=== PATIENT | female | born 1990 | race Caucasian/White ===

== ENCOUNTER 2016-06-20 11:04 | Outpatient (CLI) | payer BC | END 2016-06-20 11:05 | disposition home or self-care (01) | DX: N39.0 Urinary tract infection, site not specified (principal) ==

== ENCOUNTER 2017-11-16 10:34 | Emergency (ER) | payer BC, MEDICAID ==
--- NOTE | 2017-11-16 12:11 | ED Physician Documentation ---
PD HPI ANIMAL BITE - Stated complaint Stated Complaint: DOG BITE-FACE - Chief complaint Chief Complaint: Laceration - History obtained from History obtained from: Patient - History of Present Illness Location of injury(ies): Face (right side) Details of the event: Dog, Well appearing, Immunization unknown (she was bitten by a stray dog yesterday, with small lac and several linear abrasions on right side of face.), Animal control notified Timing - onset: Yesterday Timing - details: Abrupt onset Worsened by: Palpating Associated symptoms: No: Weakness, Numbness Similar symptoms before: Has not had sx before Recently seen: Not recently seen Review of Systems Constitutional: denies: Fever, Chills, Myalgias Eyes: denies: Loss of vision, Decreased vision Nose: denies: Rhinorrhea / runny nose, Congestion Throat: denies: Sore throat Cardiac: denies: Chest pain / pressure, Palpitations Respiratory: denies: Dyspnea, Cough, Wheezing GI: denies: Nausea, Vomiting, Diarrhea PD PAST MEDICAL HISTORY - Past Medical History Cardiovascular: None Respiratory: None Neuro: None Endocrine/Autoimmune: None - Present Medications Home Medications: Ambulatory Orders Medication Instructions Recorded Confirmed Amox/Clav 875/125 [Augmentin] 1 each PO BID #10 tablet 11/16/17 Mupirocin 1 applic TP TID #15 oint...g. 11/16/17 - Allergies Allergies/Adverse Reactions: Allergies Allergy/AdvReac Type Severity Reaction Status Date / Time No Known Drug Allergies Allergy Verified 11/16/17 10:53 PD ED PE NORMAL - Vitals Vital signs reviewed: Yes - General General: Alert and oriented X 3, No acute distress, Well developed/nourished - HEENT HEENT: PERRL, EOMI, Other (rigth side of face with several linear vertical abrasions with one partial thickness. At the apex of these is a 1 cm puncture lac with edges pretty well closed. No signs of infection. No FB noted. ) - Neck Neck: Supple, no meningeal sign, No adenopathy - Cardiac Cardiac: RRR, No murmur - Respiratory Respiratory: Clear bilaterally - Neuro Neuro: Alert and oriented X 3, canine service instructor trainer 2-12 intact, No motor deficit, No sensory deficit, Normal speech Results - Vitals Vitals: Oxygen O2 Source Room air PD MEDICAL DECISION MAKING - ED course Complexity details: considered differential (abrasions and partial thickness linear lac, with one curve lac that is full thickness but small and not open. No sutures needed. Might have some scarring from them though. ), d/w patient Departure - Departure Disposition: 01 Home, Self Care Clinical Impression: Dog bite of face Qualifiers: Encounter type: initial encounter Qualified Code(s): S01.85XA - Open bite of other part of head, initial encounter Condition: Stable Record reviewed to determine appropriate education?: Yes Instructions: ED Bite Dog Prescriptions: Amox/Clav 875/125 [Augmentin] 1 each PO BID #10 tablet Mupirocin 1 applic TP TID #15 oint...g. Comments: The best care for reducing scarring will be to prevent infection and keep the wound slightly moist. Cleanse it to 3 times a day with soap and water and apply mupirocin antibacterial ointment. Also take Augmentin oral antibiotic twice daily for 3-5 days. This will reduce the chances of infection. Continue the ointment on there until it is fully healed up. I think this will heal up with minimal scarring. Tylenol or ibuprofen if needed for pains. Discharge Date/Time: 11/16/17 12:48
[2017-11-16] MEDS ORDERED: TETANUS/DIPHTHERIA/PERTUSSIS 0.5 ML SYRINGE IM ONE (12:20)
[2017-11-16] MEDS ORDERED: AMOX/CLAV 875 MG/125 MG TABLET PO STA (12:20)
[2017-11-16] MEDS ORDERED: MUPIROCIN 2% OINT 1 GM TOP STA (12:20)
[2017-11-16 12:43] VITALS: BP 116/84
== END 2017-11-16 12:48 | disposition home or self-care (01) ==
LOC: ED 10:34
DX: S01.451A Open bite of right cheek and temporomandibular area, initial encounter (principal); W54.0XXA Bitten by dog, initial encounter; Z23 Encounter for immunization
CPT/HCPCS: 90471; 90715; 99283; A9270

== ENCOUNTER 2018-03-15 12:07 | Outpatient (CLI) | payer MEDICAID ==
--- NOTE | 2018-03-15 15:02 | Ultrasound Report ---
Reason: ENCTR FOR TEST, RESULT POSITIVE Procedure Date: 03/15/2018 Accession Number: [id number] / [id number] Procedure: US - OB First Trimester CPT Code: FULL RESULT: EXAM: FIRST TRIMESTER OBSTETRIC ULTRASOUND (Less than 11 weeks) EXAM DATE: 03/15/2018 01:52 PM. CLINICAL HISTORY: Positive test. LMP: 01/14/2018. COMPARISONS: None. TECHNIQUE: Transabdominal and transvaginal ultrasound examination with static image documentation. CLINICAL DATES: EGA 8 weeks 3 days with SHERLY 10/22/2018 based on 01/14/2018. ASSESSMENT: Gestational Sac: Single intrauterine. Mean gestational sac diameter: 28 mm = 7 weeks 6 days. Embryo: CRL (crown-rump length) 17 mm = 7 weeks 6 days. Cardiac activity: 170 beats per minute. Yolk sac: 4 mm. Amniotic fluid: Not accurately assessed at this gestational age. Early placenta: Not visible at this gestational age. Other: No perigestational fluid collection demonstrated. MATERNAL STRUCTURES: Uterus: Anteverted. Unremarkable. Cervix: Closed. Right Ovary/Adnexa: The ovary measures 3.5 x 2.1 x 2.2 cm, volume 8.4 cc. Unremarkable. Left Ovary/Adnexa: The ovary measures 3.4 x 1.5 x 2.3 cm, volume 6.1 cc. Unremarkable. Free Fluid: None. Other: None. IMPRESSION: 1. Single viable intrauterine at EGA weeks/days with SHERLY 7 weeks 6 days based on crown-rump length, which is concordant with clinical dates. 2. Assigned dating is SHERLY 10/22/2018 based on LMP. ARGENIS
== END 2018-03-15 12:08 | disposition home or self-care (01) ==
LOC: DI 12:07
PROVIDERS: ATTEND Registered Nurse
DX: Z32.01 Encounter for pregnancy test, result positive (principal)
CPT/HCPCS: 76801

== ENCOUNTER 2018-03-25 08:00 | Outpatient (CLI) | payer MEDICAID ==
[2018-03-25 16:00] LABS: MUDS CUTOFF CONCENTRATIONS CUTOFF CONC BELOW:
[2018-03-25 16:35] LABS: AMPHETAMINE SCREEN,URINE NEGATIVE (NEGATIVE); BENZODIAZEPINES SCREEN, URINE NEGATIVE (NEGATIVE); COCAINE SCREEN URINE NEGATIVE (NEGATIVE); METHADONE SCREEN, URINE NEGATIVE (NEGATIVE); METHAMPHETAMINES SCREEN, URINE NEGATIVE (NEGATIVE); OPIATE SCREEN, URINE NEGATIVE (NEGATIVE); OXYCODONE SCREEN, URINE NEGATIVE (NEGATIVE); PROPOXYPHENE SCREEN, URINE NEGATIVE (NEGATIVE); TRICYCLIC ANTIDEPRESSANT,URINE NEGATIVE (NEGATIVE)
== END 2018-03-25 08:01 ==
LOC: LAB.R 08:00
PROVIDERS: ATTEND Registered Nurse
DX: Z36.9 Encounter for antenatal screening, unspecified (principal)
CPT/HCPCS: 80306

== ENCOUNTER 2018-04-14 10:59 | Outpatient (CLI) | payer MEDICAID ==
[2018-04-14 11:39] LABS: BASOPHILS % (AUTO) 0.3 %; EOSINOPHILS # (AUTO) 0.1 10^3/uL (0.0-0.7); EOSINOPHILS % (AUTO) 0.8 %; HGB - HEMOGLOBIN 12.3 g/dL (12.0-16.0); LYMPHOCYTES # (AUTO) 1.8 10^3/uL (1.5-3.5); LYMPHOCYTES % (AUTO) 24.3 %; MEAN CORPUSCULAR HEMOGLOBIN 30.9 pg (27.0-31.0); MEAN CORPUSCULAR HGB CONC 34.7 g/dL (32.0-36.0); MEAN PLATELET VOLUME 8.8 fL (7.9-10.8); MONOCYTES # (AUTO) 0.3 10^3/uL (0.0-1.0); MONOCYTES % (AUTO) 3.8 %; NEUTROPHILS # (AUTO) 5.1 10^3/uL (1.5-6.6); NEUTROPHILS % (AUTO) 70.8 %; PLT - PLATELET COUNT 189 10^3/uL (130-450); RED BLOOD COUNT 3.99 10^6/uL (4.20-5.40); RED CELL DISTRIBUTION WIDTH 12.4 % (12.0-15.0); WHITE BLOOD COUNT 7.3 x10^3/uL (4.8-10.8)
[2018-04-14 12:21] LABS: BILIRUBIN,URINE NEGATIVE (NEGATIVE); CLARITY,URINE CLOUDY (CLEAR); KETONES,URINE (UA) NEGATIVE (NEGATIVE); LEUKOCYTE ESTERASE, URINE NEGATIVE (NEGATIVE); NITRITE,URINE NEGATIVE (NEGATIVE); OCCULT BLOOD,URINE NEGATIVE (NEGATIVE); PROTEIN,URINE NEGATIVE (NEGATIVE); UROBILINOGEN,URINE 0.2 (NORMAL) E.U./dL (NORMAL)
[2018-04-14 12:22] LABS: BACTERIA,URINE Few /HPF (None Seen); GLUCOSE, URINE (UA) NEGATIVE (NEGATIVE); RBC,URINE 0-5 /HPF (0-5); SQUAMOUS EPITHELIAL CELL,UR FEW Squamous (<= Few)
[2018-04-15 12:26] LABS: HIV AG/AB 4TH GEN NON-REACTIVE (NON-REACTIVE)
[2018-04-15 14:41] LABS: HEPATITIS B SURFACE ANTIGEN NON-REACTIVE (NON-REACTIVE)
[2018-04-15 14:42] LABS: HEPATITIS C ANTIBODY NON-REACTIVE (NON-REACTIVE)
== END 2018-04-14 11:00 | disposition home or self-care (01) ==
LOC: LAB 10:59
PROVIDERS: ATTEND Registered Nurse
DX: Z36.9 Encounter for antenatal screening, unspecified (principal)
CPT/HCPCS: 36415; 81001; 81599; 85025; 86592; 86762; 86803; 86850; 86900; 86901; 87340; 87389

== ENCOUNTER 2018-05-20 08:00 | Outpatient (CLI) | payer MEDICAID | END 2018-05-20 23:59 | disposition home or self-care (01) | LOC: LAB.R 08:00 | PROVIDERS: ATTEND Registered Nurse | DX: R30.0 Dysuria (principal) | CPT/HCPCS: 81001; 87086 ==

== ENCOUNTER 2018-06-11 12:24 | Outpatient (CLI) | payer MEDICAID ==
--- NOTE | 2018-06-15 10:11 | Ultrasound Report ---
Reason: ENCTR FOR SCREENING Procedure Date: 06/11/2018 Accession Number: [id number] / [id number] Procedure: US - OB Detailed Eval CPT Code: FULL RESULT: EXAM: COMPLETE OBSTETRICAL ULTRASOUND EXAM DATE: 06/11/2018 02:16 PM. CLINICAL HISTORY: anatomic survey. COMPARISON: None. TECHNIQUE: Real-time sonographic evaluation of the fetus performed by the yoga instructor. Multiple medical device sales representative static images were saved for review. DATING: Established EGA 21 weeks 1 day with SHERLY 10/21/2018 based on obstetric provider information. EGA 20 weeks 5 days with SHERLY 10/24/2018 based on the current ultrasound. GENERAL EVALUATION Isaacs . Cardiac activity: 146 bpm. movement: Visualized. Presentation: Breech Placenta: Posterior position. No evidence for previa. Umbilical cord: 3 vessel cord. Central placental cord origin. Amniotic fluid: Subjectively normal. MVP 3.9 cm. BIOMETRY Bi-Parietal Diameter (BPD): 4.7 cm, 20 weeks 1 day Head Circumference (HC): 18.2 cm, 20 weeks 4 days Abdominal Circumference (AC): 15.8 cm, 20 weeks 6 days Femur Length (FL): 3.5 cm, 21 weeks 0 days Estimated Weight: 384 g, 32nd percentile for 21 weeks 1 day. ANATOMY The intracranial structures, profile, face/nose/lips, spine, 4 chamber heart and outflow tracts, stomach, abdominal wall and cord insertion, diaphragm, kidneys, bladder, and extremities were visualized and demonstrate no abnormality. MATERNAL STRUCTURES Uterus: Unremarkable. Cervix: Long and closed. Transabdominal length 3.8 cm. Right ovary/adnexa: Unremarkable. Left ovary/adnexa: Unremarkable. Free fluid: None. IMPRESSION: 1. Isaacs live intrauterine with gestational age 21 weeks 1 day based on obstetric provider information. 2. Estimated weight is within expected limits for assigned dating. 3. Normal anatomic survey. No anatomic abnormalities are detected at this time. RADIA
== END 2018-06-11 12:25 | disposition home or self-care (01) ==
LOC: DI 12:24
PROVIDERS: ATTEND Nurse Practitioner Obstetrics & Gynecology
DX: Z36.9 Encounter for antenatal screening, unspecified (principal); Z3A.21 21 weeks gestation of pregnancy
CPT/HCPCS: 76811

== ENCOUNTER 2018-07-29 14:07 | Outpatient (CLI) | payer MEDICAID ==
[2018-07-29 15:26] LABS: HGB - HEMOGLOBIN 12.9 g/dL (12.0-16.0); MEAN CORPUSCULAR HGB CONC 33.6 g/dL (32.0-36.0); MEAN CORPUSCULAR VOLUME 92.4 fL (81.0-99.0); MEAN PLATELET VOLUME 7.9 fL (7.9-10.8); RED BLOOD COUNT 4.14 10^6/uL (4.20-5.40); RED CELL DISTRIBUTION WIDTH 13.1 % (12.0-15.0)
== END 2018-07-29 14:08 | disposition home or self-care (01) ==
LOC: LAB 14:07
PROVIDERS: ATTEND Nurse Practitioner Obstetrics & Gynecology
DX: Z36.89 Encounter for other specified antenatal screening (principal)
CPT/HCPCS: 36415; 82950; 85027; 86850

== ENCOUNTER 2018-09-25 08:00 | Outpatient (CLI) | payer MEDICAID | END 2018-09-25 23:59 | disposition home or self-care (01) | LOC: LAB.R 08:00 | PROVIDERS: ATTEND Registered Nurse | DX: Z34.90 Encounter for supervision of normal pregnancy, unspecified, unspecified trimester (principal) | CPT/HCPCS: 87491; 87591; 87797 ==

== ENCOUNTER 2018-09-25 10:40 | Outpatient (CLI) | payer MEDICAID ==
[2018-09-26 11:11] LABS: HEPATITIS C ANTIBODY NON-REACTIVE (NON-REACTIVE)
[2018-09-28 14:53] LABS: HIV AG/AB 4TH GEN NON-REACTIVE (NON-REACTIVE)
== END 2018-09-25 10:41 | disposition home or self-care (01) ==
LOC: LAB 10:40
PROVIDERS: ATTEND Registered Nurse
DX: Z34.90 Encounter for supervision of normal pregnancy, unspecified, unspecified trimester (principal)
CPT/HCPCS: 36415; 81599; 86592; 86803; 87389; 87491; 87591; 87797

== ENCOUNTER 2018-10-20 07:36 | Inpatient (IN) | payer MEDICAID ==
--- NOTE | 2018-10-20 07:45 | HISTORY & PHYSICAL EXAMINATION ---
Admit History - Visit Reason Visit Reason: Other - : 1 Parity: 0 Premature: 0 Ectopic: 0 : 0 Care: positive: [facility] Risk/History: positive: None Complications This : positive: None Smoking Status: Former smoker - Mother's Labs Mother's Blood Type: positive: A Mother's RH: positive: Positive GBS: positive: Group B Step Negative Rubella Status: positive: Immune Meds/Allgy - Home Medications Home Medications: Ambulatory Orders Medication Instructions Recorded Confirmed Amox/Clav 875/125 [Augmentin] 1 each PO BID #10 tablet 11/16/17 Mupirocin 1 applic TP TID #15 oint...g. 11/16/17 - Allergies Allergies/Adverse Reactions: Allergies Allergy/AdvReac Type Severity Reaction Status Date / Time No Known Drug Allergies Allergy Verified 11/16/17 10:53 Review of Systems - Constitutional Constitutional: denies: Fatigue, Fever, Chills - Eyes Eyes: denies: Blurred vision, Spots in vision, Dipolpia - Cardiovascular Cariovascular: denies: Irregular heart rate, Chest pain, Edema - Respiratory Respiratory: denies: Cough - Gastrointestinal Gastrointestinal: denies: Abdominal pain, Constipation, Diarrhea, Nausea, Vomiting - Integumentary Integumentary: denies: Rash, Pruritis - Neurological Neurological: denies: Headache - Psychiatric Psychiatric: denies: Depression, Anxiety Plan for Labor - Plan For Labor I expect patient to be DC'd or transferred within 96 hours.: Yes Plan for Labor: HPI: This 28yo @ 39.5wks gestation by L= 13wk U/S presents today for elective IOL. She was seen in the office 10/16/2018 and was 1-2/50/-3, posterior, vertex. She reports some lower abdominal cramping and pelvic pressure since that visit but nothing overly uncomfortable or consistent. SVE deferred. She denies VB or Lof and reports +FM. She has been a patient of [facility] for the duration of her which has remained uncomplicated. LMP: 10/21/2018 Initial ultrasound in first trimester agrees Serial exams: agree PMHx: None Medications: PNV Immunizations: Tdap 08/14/2018 Surgical Hx: None Social Hx: Former smoker - quit 04/2018. No ETOH or IVDA. Partner Jayy. Family Hx: Anemia - mother, sister; HTN - father, mother; hypothyroidism - mother Physical Exam: Normocephalic, atraumatic Heart RRR w/o M/G/R Lungs CTAB Abdomen gravid, soft, nontender FHR baseline 125, moderate variability, + accels, no decels SVE deferred Bilateral LE's no edema Assessment: 28yo @ 39.5wks gestation Pre-induction cervical ripening with misoprostol GBS negative FHT Category I Plan: Place in observation status until active labor or SROM Pre-induction cervical ripening with 50mcg misoprostol BC q 4 hours Continuous monitoring Anticipate spontaneous vaginal delivery Reviewed plan of care with patient, partner, and Labor RN who are all in agreement with the above plan and deny further questions or concerns at this time.
[2018-10-20] MEDS ORDERED: SODIUM CHLORIDE FLUSH 0.9% 10 ML SYRINGE IVP PRN (08:03)
[2018-10-20] MEDS: SODIUM CHLORIDE FLUSH 0.9% 10 ML SYRINGE IVP SCH (08:26)
[2018-10-20 08:29] LABS: BASOPHILS % (AUTO) 0.3 %; EOSINOPHILS % (AUTO) 0.3 %; HGB - HEMOGLOBIN 11.2 g/dL (12.0-16.0); LYMPHOCYTES % (AUTO) 20.5 %; MEAN CORPUSCULAR HEMOGLOBIN 28.7 pg (27.0-31.0); MEAN CORPUSCULAR HGB CONC 32.9 g/dL (32.0-36.0); MEAN CORPUSCULAR VOLUME 87.3 fL (81.0-99.0); MEAN PLATELET VOLUME 8.8 fL (7.9-10.8); MONOCYTES # (AUTO) 0.5 10^3/uL (0.0-1.0); MONOCYTES % (AUTO) 4.8 %; NEUTROPHILS # (AUTO) 7.3 10^3/uL (1.5-6.6); NEUTROPHILS % (AUTO) 74.1 %; PLT - PLATELET COUNT 183 10^3/uL (130-450); RED BLOOD COUNT 3.91 10^6/uL (4.20-5.40); RED CELL DISTRIBUTION WIDTH 12.8 % (12.0-15.0); WHITE BLOOD COUNT 9.9 x10^3/uL (4.8-10.8)
[2018-10-20] MEDS: miSOPROStol 100 MCG TABLET BC SCH ×4 (08:48→21:20)
[2018-10-20] MEDS: LACTATED RINGERS 1,000 ML IV SCH ×3 (08:48→21:06)
--- NOTE | 2018-10-20 19:33 | PROVIDER PROGRESS NOTE ---
Labor Progress Note - Uterine Monitoring Uterine Monitoring Mode: positive: External toco Contraction Frequency (min/apart): 2-4 Contraction Intensity: positive: Moderate to strong Uterine Resting Tone: positive: Soft - Monitoring Monitor Mode: positive: External ultrasound Heart Rate Baseline: 150 Heart Rate Variability: positive: Moderate (6-25 bmp) Accelerations: positive: Present, 15x15 Decelerations: positive: None Strip Review: positive: Category I - Vaginal Exam Dilation (in cm): 2 Effacement (%): 80 Station: -2 Cervical Position: Midposition - Labor Progress Note Labor Progress Note/Additional Text: S: Patient feeling increased discomfort with contractions. She desires to get into the jacuzzi and then feels she may be ready for placement of her epidural. Partner and mother supportive at the bedside. O: BP 127/83. T 36.8, HR 83 FHR baseline 150s, moderate variability, + accels, no decels Contractions palpate moderate every 2-4 minutes with soft resting tone. SVE 2/80/-2, midposition, vertex, Membranes intact. A: 28yo @ 39.5wks gestation GBS neg Early labor Pre-induction cervical ripening with misoprostol 50mg q 4 hours BC - s/p 3 doses P: Continuous monitoring Jacuzzi to promote relaxation and when patient feels it is no longer helping she plans to receive an epidural Will likely hold next dosage of misoprostol and when patient comfortable with epidural, plan to start pitocin with titration per protocol. Reviewed plan of care with patient, partner, and labor RN who verbalized understanding and are in agreement with above plan. They deny further questions or concerns at this time. Anticipate spontaneous vaginal delivery.
[2018-10-20] MEDS ORDERED: OXYTOCIN/SODIUM CHLORIDE 500 ML IV ONE (19:56)
[2018-10-20] MEDS ORDERED: fent/BUPIV 2 MCG/0.125% 250 ML EP ONE (20:02)
[2018-10-20] MEDS ORDERED: fent/BUPIV 2 MCG/0.125% 250 ML EP PRN (20:38)
[2018-10-20] MEDS ORDERED: ONDANSETRON 4 MG/2 ML VIAL IVP PRN (20:39)
[2018-10-20] MEDS ORDERED: NALOXONE 0.4 MG/ML VIAL IVP PRN (20:39)
[2018-10-20] MEDS ORDERED: diphenhydrAMINE INJ 50 MG/ML VIAL IVP PRN (20:39)
[2018-10-20] MEDS ORDERED: METOCLOPRAMIDE 10 MG/2 ML VIAL IVP PRN (20:39)
[2018-10-20] MEDS ORDERED: ePHEDrine 50 MG/ML VIAL IVP PRN (20:39)
[2018-10-20] MEDS ORDERED: LACTATED RINGERS 500 ML IV ONE (20:39)
[2018-10-20] MEDS ORDERED: NALBUPHINE 10 MG/ML AMP IVP PRN (20:39)
--- NOTE | 2018-10-20 20:42 | ANESTHESIA ---
Pre-Anesthesia VS, & Labs - Diagnosis Active labor - Procedure Continuous labor epidural Height 5 ft 3 in Weight (kg) 73.028 kg Body Mass Index 20.3 - NPO Other (ice chips) - Is Patient ?: Yes - Lab Results Current Lab Results: Laboratory Tests 10/20/18 08:21: WBC 9.9, RBC 3.91 L, Hgb 11.2 L, Hct 34.1 L, MCV 87.3, MCH 28.7, MCHC 32.9, RDW 12.8, Plt Count 183, MPV 8.8, Neut # (Auto) 7.3 H, Lymph # (Auto) 2.0, [place] # (Auto) 0.5, Eos # (Auto) 0.0, Baso # (Auto) 0.0, Absolute Nucleated RBC 0.00, Nucleated RBC % 0.0 Lab results reviewed: Yes Fish Bones: 10/20/18 08:21 Home Medications and Allergies Active Medications Diphenhydramine HCl (Benadryl Inj) 12.5 - 25 mg IVP Q6HR PRN PRN Reason: ITCHING Ephedrine Sulfate () 5 mg IVP Q5M PRN PRN Reason: For SBP<100;give until SBP>100 Lactated Ringer's (Lr) 1,000 mls @ 100 mls/hr IV .Q10H [facility] Last Infusion: 10/20/18 19:45 Dose: 999 mls/hr Fentanyl/Bupivacaine/Sodium Chlor (Fent/Bupiv 2 Mcg/0.125%) 250 mls @ 12 mls/hr EP .[id number] PRN PRN Reason: Analgesia Lactated Ringer's (Lr) 500 mls @ 999 mls/hr IV ONCE ONE Stop: 10/20/18 21:09 Metoclopramide HCl (Reglan Inj) 10 mg IVP Q6HR PRN PRN Reason: Nausea / Vomiting Misoprostol (Cytotec) 50 mcg BC Q4HR [facility] Last Admin: 10/20/18 16:55 Dose: 50 mcg Nalbuphine HCl (Nubain) 2.5 - 5 mg IVP Q4H PRN PRN Reason: ITCHING Naloxone HCl (Narcan) 0.1 mg IVP Q2M PRN PRN Reason: RR<8 Ondansetron HCl (Zofran Inj) 4 mg IVP Q6HR PRN PRN Reason: Nausea / Vomiting Sodium Chloride (Normal Saline Flush 0.9%) 10 ml IVP 0100,0900,1700 [facility] Last Admin: 10/20/18 08:26 Dose: 10 ml Sodium Chloride (Normal Saline Flush 0.9%) 10 ml IVP PRN PRN PRN Reason: NEEDED PER PROVIDER ORDERS Allergies/Adverse Reactions: Allergies Allergy/AdvReac Type Severity Reaction Status Date / Time No Known Drug Allergies Allergy Verified 11/16/17 10:53 Anes History & Medical History - Anesthetic History Anesthesia Complications: reports: No previous complications Family history of Anesthesia Complications: Denies Family history of Malignant Hyperthermia: Denies - Medical History Cardiovascular: reports: None Pulmonary: reports: None Gastrointestinal: reports: None Urinary: reports: None Neuro: reports: None Musculoskeletal: reports: None Endocrine/Autoimmune: reports: None Blood Disorders: reports: None Skin: reports: None Smoking Status: Former smoker Psychosocial: reports: No issues indicated - Obstetrical History : 1 Parity: 0 Events: positive: None Complications: positive: None Exam General: Alert, Oriented x3, Mild distress Dental: WNL Mouth Opening: Greater than 4 Fingerbreadths Neck Mobility: Normal Mallampati classification: II Thyromental Distance: greater than 6 cm Plan Anesthesia Type: Epidural Consent for Procedure(s) Verified and Reviewed: Yes Code Status: Attempt Resuscitation ASA classification: 2-Mild systemic disease Is this case an emergency?: Yes
[2018-10-20] MEDS: OXYTOCIN/SODIUM CHLORIDE 500 ML IV SCH (23:05)
[2018-10-21] MEDS: LACTATED RINGERS 1,000 ML IV SCH (02:44)
[2018-10-21 03:01] LABS: BASOPHILS % (AUTO) 0.3 %; EOSINOPHILS % (AUTO) 0.1 %; HGB - HEMOGLOBIN 11.2 g/dL (12.0-16.0); LYMPHOCYTES # (AUTO) 2.1 10^3/uL (1.5-3.5); LYMPHOCYTES % (AUTO) 16.9 %; MEAN CORPUSCULAR HEMOGLOBIN 29.1 pg (27.0-31.0); MEAN CORPUSCULAR HGB CONC 33.4 g/dL (32.0-36.0); MEAN CORPUSCULAR VOLUME 87.1 fL (81.0-99.0); MONOCYTES # (AUTO) 0.7 10^3/uL (0.0-1.0); MONOCYTES % (AUTO) 5.5 %; NEUTROPHILS # (AUTO) 9.7 10^3/uL (1.5-6.6); NEUTROPHILS % (AUTO) 77.2 %; PLT - PLATELET COUNT 188 10^3/uL (130-450); RED BLOOD COUNT 3.85 10^6/uL (4.20-5.40); RED CELL DISTRIBUTION WIDTH 13.1 % (12.0-15.0); WHITE BLOOD COUNT 12.6 x10^3/uL (4.8-10.8)
[2018-10-21 03:09] LABS: CREATININE,URINE 79.1 mg/dL; PROTEIN/CREATININE RATIO,URINE 0.9 (<=0.2)
[2018-10-21 03:12] LABS: ALBUMIN 2.7 g/dL (3.2-5.5); ALBUMIN/GLOBULIN RATIO 0.8 (1.0-2.2); BILIRUBIN,TOTAL 0.8 mg/dL (0.2-1.0); CALCIUM 8.5 mg/dL (8.5-10.3); TOTAL PROTEIN 6.1 g/dL (6.7-8.2)
--- NOTE | 2018-10-21 07:38 | PROVIDER PROGRESS NOTE ---
Labor Progress Note - Uterine Monitoring Uterine Monitoring Mode: positive: External toco Contraction Frequency (min/apart): 2-3 Contraction Intensity: positive: Strong Uterine Resting Tone: positive: Soft - Monitoring Monitor Mode: positive: External ultrasound Heart Rate Baseline: 145 Heart Rate Variability: positive: Moderate (6-25 bmp) Accelerations: positive: Absent Decelerations: positive: None - Vaginal Exam Dilation (in cm): 9 Effacement (%): 100 Station: 0 Cervical Position: Anterior - Labor Progress Note Labor Progress Note/Additional Text: S: Patient sitting up in high fowlers position. She states she is feeling tired and has been awake much of the night. She states she is ready to be done being . Pt denies GORE, visual disturbances, RUQ or epigastric pain. O: BP 129/78 with intermittent periods throughout the night of elevated BP. Per L&D RN she was using a large blood pressure cuff on the patient's thigh when the higher readings were recorded secondary to the patient shaking following her epidural placement and she was having trouble getting an accurate reading because of her shaking. Since the initial run of high BPs her pressures have normalized with BP cuff placed on patient's right arm. SROM 2325 a moderate amount of clear fluid - patient has remained afebrile Urine input 2400cc. Output 800cc. PIH labs WNL with the exception of elevated protein-Creatinine ratio to 0.9. LFTs WNL: AST 24, ALT 13. BUN & creatinine WNL. Hgb 11.2; Hct 33.5, PLT 188, Uric acid 5.0 Pitocin @ 1mU/mL - max pitocin infusion rate of 3mU/mL SVE 9/100/0, vertex Heart RRR w/o M/G/R, lungs CTAB. Bilateral LE's 1+ edema to feet and ankles. DTRs 2+, no clonus A: 28yo @ 39.6wks Active labor Decreased urine output Epidural for pain management GBS neg FHT Category I P: Continuous monitoring Continue pitocin @ 1mU/mL Anticipate spontaneous vaginal delivery
[2018-10-21] MEDS ORDERED: HYDROCORTISONE 1% CREAM 28 GM TUBE PR PRN (09:46)
[2018-10-21] MEDS ORDERED: WITCH HAZEL/GLYCERIN 1 EACH MED..PAD TOP PRN (09:46)
--- NOTE | 2018-10-21 10:00 | DELIVERY NOTE ---
Delivery Note - Labor Labor: positive: Augmented by oxytocin, Other - Delivery Method Delivery Method: positive: Spontaneous vaginal delivery - Presentation Presentation: positive: Vertex, JACOBY - right occiput anterior - Nuchal Cord Nuchal Cord: positive: None - Amniotic Fluid Description Amniotic Fluid Description: positive: Clear - Vacuum Use Vacuum Extraction: positive: Successful - Laceration Laceration: positive: 1st degree - Suture Suture Type: positive: Vicryl Suture Size: positive: 2-0 - Delivery Outcome Delivery Outcome: positive: Livebirth - [place]: positive: Placed in direct skin contact with mother, Bulb syringe, Stimulated, Warmed, [place] used sex: positive: Female - Cord Cord: positive: 3 vessels - Placenta Placenta: positive: Intact, Spontaneous - Estimated Blood Loss Estimated Blood Loss (in cc): 250 - Post Delivery Events Post Delivery Events: positive: No post delivery events - Delivery Comments (Free Text/Narrative) Delivery Comments (Free Text/Narrative): Labor: This 28yo @ 39.6wks gestation presented on 10/20/2018 for elective IOL. She received 3 doses of misoprostol 50mcg BC q 4 hours followed by placement of epidural per maternal request and initiation of pitocin with titration per protocol for a max infusion rate of 3mU/mL. FHR pattern demonstrated baseline 145 in a Category I pattern throughout labor.. SROM occurred at 2325 and was noted to be a moderate amount of clear fluid. The patient progressed to c/c/0 at 0825 and spontaneously delivered a viable female infant at 0922 on 10/21/2018. No nuchal cord. Apgars 8/9 at 1 and 5 min respectively. Pitocin administered via IV for hemostasis. The was placed on maternal abdomen, stimulated, dried, and placed skin to skin. The umbilical cord was doubly clamped by CNM and cut by FOB. Cord blood was obtained. Placenta delivered spontaneously and intact at 0926. 3VC. EBL 250mL. Uterine fundus firm and there is no excessive bleeding. The perineum, vagina, and cervix were inspected and found to have first degree laceration which was repaired using a 2-[address]-1 needle in standard fashion under sterile conditions. Vaginal examination following repair was done. Tissues well approximated. Family bonding well. Both mother and baby were left in stable condition.
[2018-10-21] MEDS: IBUPROFEN 800 MG TABLET PO SCH ×2 (10:55→18:09)
[2018-10-21] MEDS: ACETAMINOPHEN 500 MG TABLET PO SCH ×2 (10:56→20:36)
[2018-10-21] MEDS: SODIUM CHLORIDE FLUSH 0.9% 10 ML SYRINGE IVP SCH ×4 (12:38→14:33)
[2018-10-21] MEDS: miSOPROStol 100 MCG TABLET BC SCH ×3 (14:31→14:33)
[2018-10-21] MEDS: DOCUSATE SODIUM 100 MG CAPSULE PO SCH (20:36)
[2018-10-22] MEDS: IBUPROFEN 800 MG TABLET PO SCH ×5 (00:55→23:57)
[2018-10-22] MEDS: OXYTOCIN/SODIUM CHLORIDE 500 ML IV SCH (01:47)
[2018-10-22] MEDS: SODIUM CHLORIDE FLUSH 0.9% 10 ML SYRINGE IVP SCH ×3 (01:48→16:47)
[2018-10-22] MEDS: LACTATED RINGERS 1,000 ML IV SCH ×2 (01:48→08:43)
[2018-10-22] MEDS: ACETAMINOPHEN 500 MG TABLET PO SCH ×3 (04:37→21:47)
[2018-10-22] MEDS: DOCUSATE SODIUM 100 MG CAPSULE PO SCH ×2 (09:14→21:47)
--- NOTE | 2018-10-22 11:42 | PROVIDER PROGRESS NOTE ---
Subjective - Subjective Subjective: S: Bonding well with baby. Having some difficulty and states baby has a hard time getting latched and staying latched. For the past 2 feeds she has used the pump to express 4mL and then syringe fed. After discussing she is okay with staying tonight and does welcome the help with support. She is urinating without difficulty. Pain well controlled with oral medications. Reports light increase in cramping and bleeding after a feed. Mood is good. O: BP 118/89, HR 101, T 36.9, RR 18 Heart RRR w/o M/G/R, lungs CTAB, Abdomen soft and nontender with fundus firm at U. Bilateral LE's trace edema. A: 28yo -->P1 PPD #1 s/p TSVD of viable female P: Continue routine care and medications Special attention paid to today Plan discharge home tomorrow. Objective - Vital Signs/Intake & Output Vital Signs: Vital Signs x48h Temp Pulse Resp BP Pulse Ox 10/22/18 08:08 118/89 H 10/22/18 08:06 36.9 C 101 H 18 96 10/22/18 04:36 36.5 C 78 17 114/77 98 Intake & Output: Intake & Output 10/19/18 10/20/18 10/21/18 10/22/18 23:59 23:59 23:59 23:59 Intake Total 2976.667 1500 Output Total 750 1050 425 Balance 2226.667 450 -425 - Lab Results Fish Bones: 10/21/18 02:55 10/21/18 02:53
[2018-10-22] MEDS: miSOPROStol 100 MCG TABLET BC SCH ×2 (16:47→16:48)
[2018-10-23] MEDS: IBUPROFEN 800 MG TABLET PO SCH (05:42)
[2018-10-23] MEDS: ACETAMINOPHEN 500 MG TABLET PO SCH (05:42)
--- NOTE | 2018-10-23 07:05 | Discharge Plan ---
Discharge Plan Disposition: 01 Home, Self Care Condition: Good Diet: Regular Activity Restrictions: No Restrictions Shower Restrictions: No Driving Restrictions: No Weight Bearing: Full Weight No Smoking: If you smoke, Please STOP! Call for help. Follow-up with: Radha Jalloh CNM, ARNP [Provider Admit Priv/Credential] -
--- NOTE | 2018-10-23 07:09 | PROVIDER PROGRESS NOTE ---
Subjective - Subjective Subjective: FINAL PROGRESS NOTE: S: Bonding well with baby. much improved since yesterday. Pain well controlled with oral medications. Bleeding decreased and is light. Her partner is unable to pick her up today until close to 1700 so she is hoping to be able to stay until then. O: BP 112/63, RR 16, HR 83, T 36.5 Heart RRR w/o M/G/R, lungs CTAB, abdomen soft and nontender with fundus firm at U-2. Bilateral LE's no edema. Perineum intact. A: 28yo -->P1 PPD#2 s/p TSVD P: Discharge home today on PPD#2. Reviewed warning s/sx and when to present. Advised continuation of PNV while and PRN ibuprofen and tylenol for pain management. Plan f/u in 1 week for support visit PRN and follow up in 3 weeks for routine visit. Pt verbalized understanding and agrees to above plan. She denies further questions or concerns at this time. Objective - Vital Signs/Intake & Output Vital Signs: Vital Signs x48h Temp Pulse Resp BP Pulse Ox 10/23/18 04:30 36.5 C 83 16 112/63 98 Intake & Output: Intake & Output 10/20/18 10/21/18 10/22/18 10/23/18 23:59 23:59 23:59 23:59 Intake Total 2976.667 1500 Output Total 750 1050 425 Balance 2226.667 450 -425 - Lab Results Fish Bones: 10/21/18 02:55 10/21/18 02:53
--- NOTE | 2018-10-23 09:09 | DISCHARGE SUMMARY ---
Physician: ALIYA Parra DATE OF ADMISSION: 10/22/2018 DATE OF DISCHARGE: 10/23/2018 DIAGNOSES ON ADMISSION 1. A 28-year-old, G1, P0, at 39 and 5 weeks gestation. 2. Pre-induction cervical ripening with misoprostol. 3. Group B Streptococcus negative. DIAGNOSES ON DISCHARGE 1. A 28-year-old, G1, P1-0-0-1, status post spontaneous vaginal delivery on 10/21/2018. 2. Normal recovery. 3. . HISTORY OF PRESENT ILLNESS: She is a patient of [facility] who presented on 10/20/2017 for elective induction of labor. She received 3 doses of 50 mcg BC misoprostol q.4-hours, followed by placement of an epidural per maternal request and initiation of Pitocin with titration per protocol for a max infusion rate of 3 mU/mL. Spontaneous rupture of membrane occurred at 2325 on 10/20/2018 and was noted to be a moderate amount of clear fluid. The patient progressed to spontaneously deliver a viable female at 0922 on 10/21/2018. Apgars were 8 and 9 at 1 and 5 minutes respectively. EBL 250 mL. The perineum, vagina and cervix were inspected and found to have a first-degree laceration, which was repaired using a 2-0 Vicryl on a CT1 needle in standard fashion under sterile conditions. She has been doing well in her course. She is ambulating and tolerating a regular diet. She is urinating without difficulty, and her lochia is normal. Her pain is well controlled with oral medications. She will be discharged home today on day #2 with instructions to continue her vitamin while and to continue taking ibuprofen and Tylenol [id number] for pain management as needed. She intends to follow up with myself at [facility] in 1 week for support visit and in 3 weeks for routine visit. She has been given precautions to call if she has any worsening fevers, chills, abdominal pain, increased bleeding, or foul-smelling vaginal lochia. TD: 10/23/2018 07:15 [facility]
[2018-10-23] MEDS: DOCUSATE SODIUM 100 MG CAPSULE PO SCH (09:18)
[2018-10-23 18:13] VITALS: BP 112/67
--- NOTE | 2018-10-23 18:47 | Labor Flowsheet ---
Labor Flowsheet Datetime Report Generated by CPN: 10/23/2018 18:47 Datetime: 10/22/2018 00:32 VITAL SIGNS NBP Sys/Elena/Mean (mmHg): 119 : 77 : 86 Pulse: 81 LaborFlag: Labor Datetime: 10/21/2018 14:13 Membranes Ruptured Date/Time: 10/20/2018 23:25 Membranes Rupture Method: Spontaneous Amniotic Fluid Color: Clear Amniotic Fluid Amount: Small Amniotic Fluid Odor: Normal Datetime: 10/21/2018 10:14 SpO2 (%): 100 Datetime: 10/21/2018 09:26 Stage 2 Comments: Placenta delivered Datetime: 10/21/2018 09:22 Contraction Comments: Pushing contractions Comments: Unable to establish a baseline Datetime: 10/21/2018 09:20 STAGE 2 Pushing Progress: with Pushing Datetime: 10/21/2018 09:15 ASSESSMENT A Monitor Mode: Internal Scalp Electrode FHR Baseline Rate : 135 Oxygen Method: Room Air Datetime: 10/21/2018 08:56 MEDICATIONS Pitocin (milliunits): Decreased to @ 0 Datetime: 10/21/2018 08:45 UTERINE ACTIVITY Monitor Mode: External Frequency (min): 1-2 Quality: Strong Resting Tone (Palpate): Relaxed Datetime: 10/21/2018 08:43 Monitor Interventions for FHR: FSE Applied Datetime: 10/21/2018 08:30 Duration (sec): 40-80 Pattern: Normal: <= 5 Contractions in 10 Minutes Variability: Minimal - Undetectable to <=5 bpm Accelerations: 10X10 Decelerations: None Category: Category II Datetime: 10/21/2018 08:25 VAGINAL EXAM Dilatation (cm): 10.0 Effacement (%): 100 Exam by: Radha Jalloh CNM, [employer] Datetime: 10/21/2018 08:22 COMMUNICATION Communication: RN at Bedside; Provider at Bedside Datetime: 10/21/2018 07:57 Patient Care Comments: [place] Datetime: 10/21/2018 07:00 Pitocin Checklist: At Least 1 Acceleration of 15 bpm x 15 Seconds in 30 Minutes or Adequate Variabi lity; No More than 1 Late Deceleration Occurred in Past 30 Minutes; No More than 2 Variable Decelerat ions > 60 Seconds in Duration and decreasing >60 bpm in 30 minutes; No More than 5 Uterine Contractio ns in 10 Minutes for any 20 Minute Interval; Uterus Palpates Soft between Contractions Datetime: 10/21/2018 06:54 Medication Comments: per provider's verbal order Datetime: 10/21/2018 06:50 Pain Assessment Comments: pt was able to feel CNM VE, encourage to hit epidural button Station: 0 TEACHING Instructional Method: Verbal Plan of Care: Plan of Care Discussed; Labor; Induction Unit Routine: Medications Datetime: 10/21/2018 06:47 Provider Notified (Name): Radha Shubham Datetime: 10/21/2018 06:14 Communication Comments: Provider updated on latest VE, contraction pattern, pit rate, urine output; per provider RN not to administer IV fluid bolus. Provider almost to hospital to see pt now. Datetime: 10/21/2018 06:00 PAIN Pain Scale: 0 Datetime: 10/21/2018 05:08 Respirations: 16 Temperature (C): 36.7 Datetime: 10/21/2018 03:02 Pain Presence: None/Denies Pain Type: N/A Datetime: 10/21/2018 03:00 MATERNAL ASSESSMENT Level of Consciousness: Fully Conscious Breath Sounds, Left: Clear and Equal Breath Sounds, Right: Clear and Equal Nausea/Vomiting: Denies RUQ Epigastric Pain: Denies Datetime: 10/21/2018 02:34 Actions for Decelerations: IV Bolus Datetime: 10/21/2018 02:03 Monitor Interventions for UA: [place] Adjusted Patient Position/Activity: Left Lateral Datetime: 10/21/2018 00:09 Anesthesia Level Check: T8- Ribs Datetime: 10/20/2018 23:35 Nitrazine: Positive Datetime: 10/20/2018 23:25 Membrane Comments: clear minimal fluid w/ a little bloody show Datetime: 10/20/2018 20:49 I/O Interventions: [place] Cath Inserted Datetime: 10/20/2018 20:40 Cervix, Position: Midposition Datetime: 10/20/2018 20:18 ANESTHESIA Anesthesia Plans: Epidural Epidural Positioning: Sitting Epidural Procedure: Loading Dose Datetime: 10/20/2018 20:00 Headache: Denies PROCEDURE TIME OUT Procedure Verify: Correct Patient Identity; Correct Side and Site are Marked; Accurate Procedure Co nsent Form; Agreement on Procedure to be Done; Correct Patient Position; Relevant Images and Results are Properly Labeled and Displayed; Addressed Need to Administer Antibiotics or Fluids for Irrigation ; Safety Precautions Based on Patient History or Medication Use Datetime: 10/20/2018 19:53 Pain Location: Abdomen Pain Coping: Requesting Pain Medication or Epidural Datetime: 10/20/2018 19:30 Stage of : Labor Datetime: 10/20/2018 19:00 FHR Baseline Changes: No Baseline Change Datetime: 10/20/2018 18:55 PATIENT CARE IV/Blood Work: IV Saline Locked Datetime: 10/20/2018 18:23 Vaginal Bleeding: None Datetime: 10/20/2018 17:00 Comfort Measures: Family Support Datetime: 10/20/2018 16:55 Cervical Ripening Agents: Cytotec @ Datetime: 10/20/2018 08:43 DTR's/Clonus: DTRs 2+ Anesthesia Comments: planned epidural Labor/Induction: Cervical Ripening; Induction Pain Management: Comfort Measures Medications: Cervical Ripening Related: Common Discomforts of ; Activity and Rest
== END 2018-10-23 18:45 | disposition home or self-care (01) | DRG 807 ==
LOC: WFO 07:36 → FBP 07:39 → WFO 08:02 → UNDOADMOB 08:03 → FBP 08:03 → INTOOBSV 21:29 → OBSVTOIN 21:29 → INTOOBSV 10-22 01:15 → UNDOADMOB 10-22 01:15 → FBP 10-22 01:15 → OBSVTOIN 10-22 01:15
PROVIDERS: ADMIT Nurse Practitioner Obstetrics & Gynecology; ATTEND Nurse Practitioner Obstetrics & Gynecology
PROC: 10E0XZZ Delivery of Products of Conception, External Approach (ICD-10-PCS; principal; 2018-10-22)
DX: O70.0 First degree perineal laceration during delivery (principal); Z37.0 Single live birth; Z3A.39 39 weeks gestation of pregnancy; Z87.891 Personal history of nicotine dependence
CPT/HCPCS: 80053; 82570; 83615; 84156; 84550; 85025; 96360; 96361; A9270; G0378; G0379; J7120

== ENCOUNTER 2019-08-10 11:57 | Outpatient (CLI) | payer MEDICAID ==
--- NOTE | 2019-08-11 13:43 | XRAY Report ---
Reason: IUD SURVEILLANCE Procedure Date: 08/10/2019 Accession Number: [id number] / [id number] Procedure: WCP - Pelvis 1 View CPT Code: Final Report FULL RESULT: EXAM: PELVIS RADIOGRAPHY EXAM DATE: 08/10/2019 11:57 AM. CLINICAL HISTORY: IUD surveillance. Unable to locate strings on exam. COMPARISON: None. TECHNIQUE: 1 view. FINDINGS: Bones: Normal. No fracture or bone lesion. Joints: The visualized hip, pubis symphysis, and sacroiliac joints are preserved. No subluxation. Soft Tissues: IUD projects in the right paramedian pelvis lateral to the lower sacrum. No soft tissue swelling. IMPRESSION: IUD projects in the right paramedian pelvis. RADIA
== END 2019-08-10 23:59 | disposition home or self-care (01) ==
LOC: DI.WCP 11:57
PROVIDERS: ATTEND Nurse Practitioner Family
DX: Z30.431 Encounter for routine checking of intrauterine contraceptive device (principal); T83.32XA Displacement of intrauterine contraceptive device, initial encounter
CPT/HCPCS: 72170